=== PATIENT | male | born 1945 | race Caucasian/White ===

== ENCOUNTER → 2016-02-14 | Outpatient (CLI) | payer OTHER, BC ==
[~2016-02-14] VITALS: Ht 180.3 cm; Wt 81.6 kg
[~2016-02-14] MED LIST: AMBEREN; AMBIEN 5 MG TABL5 M1 PO; CARISOPRODOL 3350 MG PO; CELEBREX 200 M200 MG PO; CYMBALTA30 MG PO; CYMBALTA60 MG PO; HYDROCODON-ACE1 EAC8 PO; HYTRIN 5 M5 MG/1 CAP PO; MELOXICAM7.5 MG PO; NORCO 7.5-3251 EACH PO; OMEPRAZOLE20 M2 PO; OXYCODONE-APAP1 EAC6 PO; PERCOCET 7.5-31 EACH PO; RAPAFLO4 MG PO; RISPERIDONE1 MG PO; SKELAXIN 800 M800 M1 PO; TRAZODONE HCL100 MG PO; XANAX 0.5 MG0.5 MG PO; ZANAFLEX4 MG PO
--- NOTE | ~2016-02-14 | HPC ---
[facility] [place] [address] PAIN MANAGEMENT CONSULTATION Name: CANDIDA VICKERS Room #: REG [facility] Angel Luis.#: [id number] Admission: 02/14/16 Attend Phys: Wayne Rodriguez DO Discharge: Date of : 47 Report #: [id number] THIS REPORT FOR: //name// CC: Ambrose Rodriguez The patient is a very pleasant 70-year-old gentleman, well known to pain clinic, typically treated for lumbar radiculopathy, myofascial pain requiring complex medication management, history of DJD of the right shoulder. Last visit 12/29/2015, we continued the patient on Percocet 7.5/325 four a day and was given a lumbar epidural injection for radicular symptoms. He returns to pain clinic today noting that while the epidural injection afforded good relief of radicular pain, he has a new complaint, which is primarily pain in the low back, left greater than right. PHYSICAL EXAMINATION: Shows symptoms to be a little bit different than prior. He has tenderness over the SI joints with grossly positive Néstor test bilaterally, left greater than right. Lower extremity strength; however, is symmetric. Straight leg raise is negative. Vital signs otherwise stable as noted on the EMR. Former smoker. ASSESSMENT: Acute exacerbation of sacroiliac and lumbosacral mediated pain in patient with chronic pain concerns include lumbar radiculopathy, myofascial pain, requiring complex medication management. RECOMMENDATION: 1. We will get a urine drug screen today, it has been greater than a year since his last urine drug screen, though he does not require medication renewal today. 2. Bilateral SI joint injection under fluoroscopy today. 3. I did refer the patient for physical therapy for core strengthening exercises. Follow up in 1 month to evaluate efficacy of intervention today and for medication renewal. PROCEDURE NOTE: Bilateral SI joint injection under fluoroscopy. INDICATION: Symptomatic sacroiliac joint dysfunction, lumbosacral spondylosis without myelopathy. PROCEDURE NOTE: After written and informed consent was obtained including risk of infection, nerve trauma, increased pain and weakness, the patient wishes to proceed. The patient was taken to the fluoroscopy suite, placed in the prone position. The sacroiliac joint was visualized using the C-arm, turned in an oblique fashion to align the joint. The skin overlying the area was cleansed with ChloraPrep. Skin wheal with Xylocaine was raised. A 22 gauge spinal needle was inserted into the inferior aspect of the joint. A low volume extension tubing was then attached to the needle after [place] [address] PAIN MANAGEMENT CONSULTATION Name: CANDIDA VICKERS Bro Room #: REG [facility] Carlos#: [id number] Admission: 02/14/16 Attend Phys: Wayne Rodriguez DO Discharge: Date of : 47 Report #: [id number] Negative aspiration was accomplished. 1 mL of Omnipaque was injected which showed spread within the SI joint. 40 mg triamcinolone plus 2 mL of 0.5% preservative-free bupivacaine was injected into the joint. Needle was removed. Attention was then turned to the contralateral joint which was treated in an identical fashion. After both needles were removed the prep was washed off. Two Band-Aids were applied over the puncture sites. The patient was allowed to ambulate to the recovery room, monitored for an appropriate period of time, discharged in good and stable condition. <ELECTRONICALLY SIGNED> By: Wayne Rodriguez DO 02/19/16 1607 1229 1424 Wayne Rodriguez DO /nt
[2016-02-14 10:13] VITALS: BP 139/86
[2016-02-20 20:11] LABS: EER PAIN MGT INTERP FINAL (())
== END ==
LOC: PAIN 07:14
PROVIDERS: Anesthesiology Pain Medicine
DX: M53.3 Sacrococcygeal disorders, not elsewhere classified (principal); M19.011 Primary osteoarthritis, right shoulder; M47.27 Other spondylosis with radiculopathy, lumbosacral region; Z87.891 Personal history of nicotine dependence

== ENCOUNTER → 2016-08-06 | Outpatient (CLI) | payer OTHER, BC ==
[~2016-08-06] VITALS: Ht 180.3 cm; Wt 86.6 kg
[~2016-08-06] MED LIST changes: +ABILIFY 2 MG2 M1 PO; +LEXAPRO 10 MG T10 M2 PO
[2016-08-06 14:03] VITALS: BP 122/82
== END ==
LOC: PAIN 07-31 06:58
DX: M47.26 Other spondylosis with radiculopathy, lumbar region (principal); M19.011 Primary osteoarthritis, right shoulder; Z79.891 Long term (current) use of opiate analgesic; Z87.891 Personal history of nicotine dependence

== ENCOUNTER → 2016-11-05 | Outpatient (CLI) | payer OTHER, BC ==
[~2016-11-05] VITALS: Ht 180.3 cm; Wt 92.4 kg
--- NOTE | ~2016-11-05 | HPC ---
[facility] [place] [address] PAIN MANAGEMENT CONSULTATION Name: CANDIDA VICKERS [facility] [id number] Admission: 11/05/16 Attend Phys: Wayne Rodriguez DO Discharge: Date of : 47 Report #: [id number] THIS REPORT FOR: //name// CC: Ambrose Rodriguez The patient is a 71-year-old gentleman, typically treated for lumbosacral spondylosis, SI mediated pain, myofascial pain requiring high risk complex medication management. Last seen in the pain clinic 08/06/2016, continued on Percocet 7.5/325 four a day, tizanidine 4 mg t.i.d. for spasm, and Meloxicam 7.5 b.i.d., encouraged to use on a nondaily basis for cardiac concerned, was referred to physical therapy and was given bilateral SI joint injections. He prior had bilateral SI joint injections in February as well. He returns to pain clinic today noting the injection lasts visit afforded good incremental relief of pain. Specifically, rates 50% relief for 10 weeks, but pain has begun to recur. He rates the pain 7 on VAS, pain is across the low back, buttocks, does not radiate into legs. PHYSICAL EXAMINATION: Shows a 71-year-old gentleman, BMI is 28.4 kg/m2. Vital signs are stable as noted in the EMR. Rises from chair using armrest. Diffuse tenderness across the low back. Positive Néstor test bilaterally. Lower extremity strength is preserved. We reviewed the fact that opiate medications are being used to provide analgesia adequate to support activities of daily living, not attempting to achieve a specific pain score on the 0-10 Visual Analog Scale. The current opiate medications are providing sufficient analgesia to allow the patient to participate in activities of daily living. The patient is not exhibiting any aberrant behavior suggestive of drug diversion. The patient is not having any adverse reactions to medications. The patient is not suffering from daytime somnolence or mental acuity changes. The patient is managing opiate-induced constipation with appropriate zcfq-cpf-gmnjulf agents and dietary considerations. The patient was counseled on concern for caution with operating a motor vehicle while using opiate medications. A physical exam was performed and the patient's functional status was evaluated. All patients with back pain were advised against the bed rest greater than 4 days and were advised to return to normal activities. Pain score assessment was noted and the treatment plan was reviewed with the patient. All current medications, both prescribed and OTC were reviewed and reconciled on the electronic medical record. Tobacco screening was accomplished and smoking cessation was advised when indicated. BMI was noted and diet/exercise modification was recommended for all patients following outside normal parameters. I reviewed with the patient today their responsibilities to [address] [address] PAIN MANAGEMENT CONSULTATION Name: CANDIDA VICKERS Room #: REG CLNathalia Gonzalez#: [id number] Admission: 11/05/16 Attend Phys: Wayne Rodriguez DO Discharge: Date of : 47 Report #: [id number] prescription medications, reviewed their responsibility to utilize medications only as prescribed by the physician. They are to seek and receive pain medications only from 1 physician group ( [facility]). They are to use 1 pharmacy and keep the clinic informed if they change pharmacies. Their responsibilities include making followup visits in a timely fashion and to avoid abrupt discontinuation of medication usage. Their responsibilities further include bringing their medications (bottles from the pharmacy with residual pills) to the visit for possible confirmation of pill counts and the patient understands it is their responsibility to submit to random drug screens to ensure both that the medications prescribed are present, and that no other controlled substances are present. All prescriptions provided today were generated electronically. ASSESSMENT: 1. Symptomatic lumbosacral spondylosis, sacroiliac mediated pain, myofascial pain, requiring high risk complex medication management. 2. Acute bilateral SI mediated pain. RECOMMENDATIONS: 1. Continue current medications including Percocet 7.5/325 four a day, tizanidine 4 mg t.i.d., Meloxicam 7.5 b.i.d. on a nondaily basis. Encouraged to continue physical therapy. 2. SI joint injection under fluoroscopy. PROCEDURE NOTE: After written and informed consent was obtained including risk of infection, nerve trauma, increased pain and weakness, the patient wishes to proceed. The patient was taken to the fluoroscopy suite, placed in the prone position. The sacroiliac joint was visualized using the C-arm, turned in an oblique fashion to align the joint. The skin overlying the area was cleansed with ChloraPrep. Skin wheal with Xylocaine was raised. A 22 gauge spinal needle was inserted into the inferior aspect of the joint. A low volume extension tubing was then attached to the needle after the stylet was removed. Negative aspiration was accomplished. 1 mL of Omnipaque was injected which showed spread within the SI joint. 40 mg triamcinolone plus 2 mL of 0.5% preservative-free bupivacaine was injected into the joint. Needle was removed. Attention was then turned to the contralateral joint which was treated in an identical fashion. After both needles were removed the prep was washed off. Two Band-Aids were applied over the puncture sites. The patient was allowed to ambulate to the recovery room, monitored for an appropriate period of time, discharged in good and stable condition. <ELECTRONICALLY SIGNED> By: Wayne Rodriguez DO 11/09/16 0840 1703 1640 Wayne Rodriguez DO /nt
[2016-11-05 14:34] VITALS: BP 127/68
== END | disposition home or self-care (01) ==
LOC: PAIN 06:40
DX: M53.3 Sacrococcygeal disorders, not elsewhere classified (principal); G89.29 Other chronic pain; M47.897 Other spondylosis, lumbosacral region; M79.1 Myalgia; Z79.891 Long term (current) use of opiate analgesic; Z87.891 Personal history of nicotine dependence; Z79.899 Other long term (current) drug therapy

== ENCOUNTER → 2017-01-29 | Outpatient (CLI) | payer OTHER, BC ==
[~2017-01-29] VITALS: Ht 180.3 cm; Wt 92.7 kg
--- NOTE | ~2017-01-29 | HPC ---
[facility] [place] [address] PAIN MANAGEMENT CONSULTATION Name: CANDIDA VICKERS [facility] [id number] Admission: 01/29/17 Attend Phys: Wayne Rodriguez DO Discharge: Date of : 47 Report #: [id number] THIS REPORT FOR: //name// CC: Ambrose Rodriguez HISTORY OF PRESENT ILLNESS: The patient is a 71-year-old gentleman well known to the pain clinic, being treated for SI joint dysfunction primarily, component of lumbosacral spondylosis, myofascial pain requiring high-risk complex medication management. Last seen in the pain clinic 11/05/2016. The patient continued on Percocet 7.5/325 four a day, tizanidine 4 mg t.i.d. for spasm and meloxicam 7.5 b.i.d. The patient has done well with occasional bilateral SI joint injections. Refer to physical therapy, is doing those core strengthening exercises ongoing. Unfortunately, last bilateral SI joint injection on 11/05/2016 afforded only about 60% relief, which is less than his typical. The patient returns to pain clinic today noting medications are providing sufficient analgesia to allow the patient to participate in activities of daily living. He really does not require a renewal of medication today. He is requesting repeat bilateral SI joint injection with increasing pain. PHYSICAL EXAMINATION: GENERAL: Remains unchanged pleasant 71-year-old gentleman. VITAL SIGNS: Stable. MUSCULOSKELETAL: Lumbar flexion is limited about 70 degrees. Lower extremity strength is symmetric. Straight leg raise negative. Tenderness over the SI joints bilaterally with a positive Néstor test, positive Gaenslen's test and positive distraction. ASSESSMENT: Symptomatic bilateral sacroiliac joint dysfunction by clinical exam. RECOMMENDATION: Bilateral SI joint injection under fluoroscopy. PROCEDURE NOTE: After written and informed consent was obtained including risk of infection, nerve trauma, increased pain and weakness, the patient wishes to proceed. The patient was taken to the fluoroscopy suite, placed in the prone position. The sacroiliac joint was visualized using the C-arm, turned in an oblique fashion to align the joint. The skin overlying the area was cleansed with ChloraPrep. Skin wheal with Xylocaine was raised. A 22 gauge spinal needle was inserted into the inferior aspect of the joint. A low volume extension tubing was then attached to the needle after the stylet was removed. Negative aspiration was accomplished. A 1 mL of Omnipaque was injected which showed spread within the SI joint. 40 mg triamcinolone plus 2 mL of 0.5% preservative-free bupivacaine was injected into the joint. Needle was removed. [address] [address] PAIN MANAGEMENT CONSULTATION Name: CANDIDA VICKERS Room #: REG [facility] Carlos#: [id number] Admission: 01/29/17 Attend Phys: Wayne Rodriguez DO Discharge: Date of : 47 Report #: [id number] Attention was then turned to the contralateral joint which was treated in an identical fashion. After both needles were removed the prep was washed off. Two Band-Aids were applied over the puncture sites. The patient was allowed to ambulate to the recovery room, monitored for an appropriate period of time, discharged in good and stable condition. By: 1241 [id number] Wayne Rodriguez DO /nt
[2017-01-29 09:54] VITALS: BP 138/90
== END | disposition home or self-care (01) ==
LOC: PAIN 07:37
DX: M53.3 Sacrococcygeal disorders, not elsewhere classified (principal); G89.29 Other chronic pain; M47.897 Other spondylosis, lumbosacral region; M79.1 Myalgia; F41.8 Other specified anxiety disorders; Z79.891 Long term (current) use of opiate analgesic; Z98.890 Other specified postprocedural states; Z87.891 Personal history of nicotine dependence; Z79.899 Other long term (current) drug therapy

== ENCOUNTER → 2017-04-12 | Outpatient (CLI) | payer OTHER, BC ==
[~2017-04-12] VITALS: Ht 180.3 cm; Wt 97.2 kg
--- NOTE | ~2017-04-12 | HPC ---
[facility] [place] [address] PAIN MANAGEMENT CONSULTATION Name: CANDIDA VICKERS Room #: REG [facility] Angel Luis.#: [id number] Admission: 04/12/17 Attend Phys: Wayne Rodriguez DO Discharge: Date of : 47 Report #: [id number] THIS REPORT FOR: //name// CC: Ambrose Rodriguez The patient is a very pleasant 71-year-old gentleman, well known to the pain clinic, typically treated for SI mediated pain, lumbosacral spondylosis. He has done well with occasional SI joint injections. He takes Percocet 7.5/325 three-four a day, Meloxicam 7.5 daily and tizanidine for spasm. He has had multiple SI joint injections, 4 in 2015, February, July, October and January. He notes he gets 2-3 months' relief with injection, pain recurs, pain is in the low back, exacerbated with standing, walking, and bending. It does not radiate below the knees. PHYSICAL EXAMINATION: Positive Néstor test. Positive Gaenslen's. Positive pelvic distraction. Otherwise, vital signs are stable. Subjectively pain score 6-7 on a VAS. BMI is 29.9 kg/m2. He does not use tobacco products. He has an opiate consent to treat contract signed on 09/05/2015. ASSESSMENT: Chronic pain syndrome requiring complex medication management, sacroiliac mediated pain, axial back pain, myofascial pain by history. We reviewed the fact that opiate medications are being used to provide analgesia adequate to support activities of daily living, not attempting to achieve a specific pain score on the 0-10 Visual Analog Scale. The current opiate medications are providing sufficient analgesia to allow the patient to participate in activities of daily living. The patient is not exhibiting any aberrant behavior suggestive of drug diversion. The patient is not having any adverse reactions to medications. The patient is not suffering from daytime somnolence or mental acuity changes. The patient is managing opiate-induced constipation with appropriate pfaf-qnr-upylwjd agents and dietary considerations. The patient was counseled on concern for caution with operating a motor vehicle while using opiate medications. A physical exam was performed and the patient's functional status was evaluated. All patients with back pain were advised against the bed rest greater than 4 days and were advised to return to normal activities. Pain score assessment was noted and the treatment plan was reviewed with the patient. All current medications, both prescribed and OTC were reviewed and reconciled on the electronic medical record. Tobacco screening was accomplished and smoking cessation was advised when indicated. BMI was noted and diet/exercise modification was recommended for all patients following outside normal parameters. I reviewed with the patient today their responsibilities to safeguard prescription medications, reviewed their responsibility to utilize medications [address] [address] PAIN MANAGEMENT CONSULTATION Name: CANDIDA VICKERS Room #: REG [facility] Carlos#: [id number] Admission: 04/12/17 Attend Phys: Wayne Rodriguez DO Discharge: Date of : 47 Report #: [id number] only as prescribed by the physician. They are to seek and receive pain medications only from 1 physician group ( [facility]). They are to use 1 pharmacy and keep the clinic informed if they change pharmacies. Their responsibilities include making followup visits in a timely fashion and to avoid abrupt discontinuation of medication usage. Their responsibilities further include bringing their medications (bottles from the pharmacy with residual pills) to the visit for possible confirmation of pill counts and the patient understands it is their responsibility to submit to random drug screens to ensure both that the medications prescribed are present, and that no other controlled substances are present. All prescriptions provided today were generated electronically. RECOMMENDATIONS: 1. Renew Percocet 7.5/325, taken the liberty of writing for 100 tablets, release today and 4 weeks; continue tizanidine 4 mg t.i.d., and Meloxicam 7.5 b.i.d. 2. Bilateral SI joint injection under fluoroscopy today. 3. The patient was given contact information for Dr. Osmany Miller and Dr. Herberth Chairez for consideration for percutaneous fusion of the SI joint. PROCEDURE: Bilateral SI joint injection under fluoroscopy. PROCEDURE NOTE: After written and informed consent was obtained including risk of infection, nerve trauma, increased pain and weakness, the patient wishes to proceed. The patient was taken to the fluoroscopy suite, placed in the prone position. The sacroiliac joint was visualized using the C-arm, turned in an oblique fashion to align the joint. The skin overlying the area was cleansed with ChloraPrep. Skin wheal with Xylocaine was raised. A 22 gauge spinal needle was inserted into the inferior aspect of the joint. A low volume extension tubing was then attached to the needle after the stylet was removed. Negative aspiration was accomplished. A 1 mL of Omnipaque was injected which showed spread within the SI joint. 40 mg triamcinolone plus 2 mL of 0.5% preservative-free bupivacaine was injected into the joint. Needle was removed. Attention was then turned to the contralateral joint which was treated in an identical fashion. After both needles were removed the prep was washed off. Two Band-Aids were applied over the puncture sites. The patient was allowed to ambulate to the recovery room, monitored for an appropriate period of time, discharged in good and stable condition. <ELECTRONICALLY SIGNED> By: Wayne Rodriguez DO 04/14/17 0820 1630 1947 Wayne Rodriguez DO /nt
[2017-04-12 09:55] VITALS: BP 142/86
== END | disposition home or self-care (01) ==
LOC: PAIN 07:21
DX: M53.3 Sacrococcygeal disorders, not elsewhere classified (principal); G89.4 Chronic pain syndrome; M79.1 Myalgia; M54.9 Dorsalgia, unspecified; Z87.891 Personal history of nicotine dependence; Z79.899 Other long term (current) drug therapy; Z79.891 Long term (current) use of opiate analgesic

== ENCOUNTER → 2017-07-16 | Outpatient (CLI) | payer OTHER, BC ==
[~2017-07-16] VITALS: Ht 180.3 cm; Wt 97.1 kg
--- NOTE | ~2017-07-16 | HPC ---
[facility] [place] [address] PAIN MANAGEMENT CONSULTATION Name: CANDIDA VICKERS [facility] [id number] Admission: 07/16/17 Attend Phys: Wayne Rodriguez DO Discharge: Date of : 47 Report #: [id number] THIS REPORT FOR: //name// CC: Ambrose Rodriguez DATE OF SERVICE: 07/16/2017 PAIN CLINIC NOTE The patient is a very pleasant 72-year-old gentleman well known to the pain clinic. He has been treated for symptomatic SI mediated pain, component of lumbosacral spondylosis without myelopathy. He has done very well with occasional SI joint injections. He prior been treated with epidural injections back in 2015. Attention was directed at the SI joints in February 2016. He had 4 SI joint injections in 2016 and repeated injection in April and referred the patient to [facility] (Blake Miller MD) for consideration for percutaneous SI fusion. Per the patient, he did see a surgeon at [facility] who thought that the patient would not benefit from percutaneous SI fusion. He returns to pain clinic today noting he had excellent relief following the prior SI joint injections, but pain has gradually begun to reoccur, he rates it a 6-7 on a VAS. Pain is exacerbated with standing, walking and bending forward. PHYSICAL EXAMINATION: Shows a 72-year-old gentleman with BMI is 29.9 kilograms per meter squared. Vital signs stable as noted in the EMR. Lower extremity strength is preserved. Straight leg raise is negative. Tender over the SI joints. Positive Néstor test, positive Gaenslen's test, positive pelvic distraction. ASSESSMENT: Symptomatic sacroiliac joint mediated pain, lumbosacral spondylosis without myelopathy. RECOMMENDATION: 1. Continue Percocet rare use 7.5/ he does not require a prescription (prior prescription for 120 tablets given in April). Continue meloxicam 7.5 b.i.d. and tizanidine for spasm. 2. Bilateral SI joint injection under fluoroscopy today. 3. Follow up simply as needed with one of the Pain physicians. PROCEDURE: Bilateral SI joint injection under fluoroscopy. PROCEDURE NOTE: After written and informed consent was obtained including risk of infection, nerve trauma, increased pain and weakness, the patient wishes to [address] [address] PAIN MANAGEMENT CONSULTATION Name: CANDIDA VICKERS [facility] #: [facility] [id number] Admission: 07/16/17 Attend Phys: Wayne Rodriguez DO Discharge: Date of : 47 Report #: [id number] proceed. The patient was taken to the fluoroscopy suite, placed in the prone position. The sacroiliac joint was visualized using the C-arm, turned in an oblique fashion to align the joint. The skin overlying the area was cleansed with ChloraPrep. Skin wheal with Xylocaine was raised. A 22 gauge spinal needle was inserted into the inferior aspect of the joint. A low volume extension tubing was then attached to the needle after the stylet was removed. Negative aspiration was accomplished. A 1 mL of Omnipaque was injected which showed spread within the SI joint. 40 mg triamcinolone plus 2 mL of 0.5% preservative-free bupivacaine was injected into the joint. Needle was removed. Attention was then turned to the contralateral joint which was treated in an identical fashion. After both needles were removed the prep was washed off. Two Band-Aids were applied over the puncture sites. The patient was allowed to ambulate to the recovery room, monitored for an appropriate period of time, discharged in good and stable condition. <ELECTRONICALLY SIGNED> By: Wayne Rodriguez DO 07/19/17 0709 1209 02 Wayne Rodriguez DO /nt
[2017-07-16 10:49] VITALS: BP 138/87
== END | disposition home or self-care (01) ==
LOC: PAIN 07:10
DX: M53.3 Sacrococcygeal disorders, not elsewhere classified (principal); M47.27 Other spondylosis with radiculopathy, lumbosacral region; G89.29 Other chronic pain; Z98.890 Other specified postprocedural states; Z87.891 Personal history of nicotine dependence; Z79.899 Other long term (current) drug therapy

== ENCOUNTER → 2018-04-19 | Outpatient (CLI) | payer OTHER, BC ==
[~2018-04-19] VITALS: Ht 182.9 cm; Wt 98.7 kg
[~2018-04-19] MED LIST changes: +PAXIL10 MG PO; +ZYPREXA2.5 MG PO
[2018-04-19 09:50] VITALS: BP 150/80
--- NOTE | 2018-04-19 09:51 | NUR ---
Pain Clinic Assessment: 1. History of Osteoarthritis: Not Applicable History of Rheumatoid Arthritis: Not Applicable 2. Height: 6 ft. 0 in. 182.9 cm. Weight: 217.6 lb. oz. 98.703 kg. Patient's BMI: 29.5 3. Vital Signs: BP: 150/80 Pulse: 64 Resp: 18 Temp: 02 Sat: 100 ECG Mon: 4. Pain Intensity: 7 5. Fall Risk: Dizziness: Needs help standing or walking: Fallen in the last 3 months: Fall risk comments: 6. Patient on Blood Thinner: None 7. History of Hypertension: N 8. Opioid Therapy greater than 6 weeks: Y Opiate Contract Signed: 09/05/15 9. Risk Assessment Tool Provided: 4/MOD 10. Functional Assessment Tool: 11. Recreational Drug Use: Never Drug Type: Tobacco Use: Current Every Day Smoker Tobacco Type: Cigarettes Amount or Packs/day: 1/2 How Many Years: Alcohol Use: No Frequency: Quant:
--- NOTE | 2018-04-20 11:50 | HPC ---
[facility] [place] [address] PAIN MANAGEMENT CONSULTATION Name: CANDIDA VICKERS [facility]: [id number] Admission: 04/19/18 ������������������ Attend Phys: Morgan Rodriguez DO Discharge: ������������������ Date of : 49 Report #: [id number] THIS REPORT FOR: //name// CC: Morgan Viera MD DATE OF SERVICE: 04/19/2018 CHIEF COMPLAINT: Bilateral SI joint pain. HISTORY OF PRESENT ILLNESS: As you know, the patient is a very pleasant 73-year-old male who returns today in followup visit indicating excellent benefit with SI joint injections. The last injection series was performed 07/16/2017 by my partner, Dr. Wayne Rodriguez. He has done very well with bilateral SI joint injections, returning today in followup visit stating a pain level of around 7/10. He has had a slow and progressive return of symptoms. No inciting injury or trauma. He returns today requesting bilateral SI joint injections under fluoroscopic guidance and also requesting refill of medications. ALLERGIES: No known drug allergies. CURRENT MEDICATIONS: Omeprazole 20 mg once a day, multivitamin 1 tab per day, alprazolam 0.5 mg b.i.d., meloxicam 7.5 mg once a day, Percocet 7.5/325 one tab p.o. q. 6 hours p.r.n. for pain, tizanidine 4 mg 3 times a day p.r.n. muscle spasming, Paxil 10 mg per day, Zyprexa 2.5 mg once a day. SOCIAL HISTORY: The patient smokes half pack of tobacco per day, has done so for years. Denies IV or illicit drug use. Denies any chronic alcohol use. He is unaccompanied at today's visit. PQRS: The patient has no known osteoarthritis. No rheumatoid arthritis. He is placing pain intensity at 7/10. He is not a fall risk nor has he had a fall in the last 3 months. He is not on blood thinners. He is not treated for hypertension. He is on long-term opioid medication a with moderate risk of opioid addiction. He is placing pain impact score at 35/70, moderate interference of daily activities secondary to pain. PHYSICAL EXAMINATION: VITAL SIGNS: Blood pressure 150/80, pulse 64, respiratory rate 18 and unlabored. The patient is 100% on room air, height 6 feet tall, weight 217.6 pounds, BMI calculated 29.5. GENERAL: Well-developed, well-nourished, well-hydrated 73-year-old male appearing stated age, placing current pain score 7/10. HEENT: Normocephalic, atraumatic. Pupils equal, round, reactive to light. [facility] [address] [place] [address] PAIN MANAGEMENT CONSULTATION Name: CANDIDA VICKERS [facility] #[facility]Tre[facility] [id number] Admission: 04/19/18 ������������������ Attend Phys: Morgan Rodriguez DO Discharge: ������������������ Date of : 49 Report #: [id number] Extraocular muscles are intact. EXTREMITIES: Show no clubbing, no cyanosis, no edema. MUSCULOSKELETAL: Lower extremity strength is symmetrical 5/5. Muscle bulk and tone is symmetrical in comparing left lower extremity to right. Seated straight leg raising negative. Supine straight leg raising negative. Palpatory tenderness noted over the SI joints bilaterally. Deep palpation of the area causes intensification of pain. Also, pressure over the sacrum causes increase in pain in the typical SI joint fashion. Ankle clonus negative. Babinski is negative. ASSESSMENT: 1. Bilateral sacroiliac joint dysfunction. 2. Lumbosacral spondylosis without radiculopathy. 3. Chronic intractable pain. PLAN: 1. The patient returns today in followup visit indicating good efficacy with the SI joint injections provided at last visit. The patient reports almost 6 months' worth of pain improvement. He returns today in followup visit with pain score of around 7/10 involving the bilateral SI joints. He has requested a SI joint injection to be provided to both on the left and right side to address his bilateral SI joint dysfunction. He has been advised of risks and benefits of the procedure, states understood and wished to proceed. We reviewed the fact that opiate medications are being used to provide analgesia adequate to support activities of daily living, not attempting to achieve a specific pain score on the 0-10 Visual Analog Scale. The current opiate medications are providing sufficient analgesia to allow the patient to participate in activities of daily living. The patient is not exhibiting any aberrant behavior suggestive of drug diversion. The patient is not having any adverse reactions to medications. The patient is not suffering from daytime somnolence or mental acuity changes. The patient is managing opiate-induced constipation with appropriate [id number] agents and dietary considerations. The patient was counseled on concern for caution with operating a motor vehicle while using opiate medications. A physical exam was performed and the patient's functional status was evaluated. All patients with back pain were advised against the bed rest greater than 4 days and were advised to return to normal activities. Pain score assessment was noted and the treatment plan was reviewed with the patient. All current medications, both prescribed and OTC were reviewed and reconciled on the electronic medical record. Tobacco screening was accomplished and smoking cessation was advised when indicated. BMI was noted and diet/exercise modification was recommended for all patients following outside normal parameters. [facility] [place] [address] PAIN MANAGEMENT CONSULTATION Name: CANDIDA VICKERS Room #: REG CLNathalia Angel Luis.#: [id number] Admission: 04/19/18 ������������������ Attend Phys: Morgan Rodriguez DO Discharge: ������������������ Date of : 49 Report #: [id number] I reviewed with the patient today their responsibilities to safeguard prescription medications, reviewed their responsibility to utilize medications only as prescribed by the physician. They are to seek and receive pain medications only from 1 physician group ( [facility]). They are to use 1 pharmacy and keep the clinic informed if they change pharmacies. Their responsibilities include making followup visits in a timely fashion and to avoid abrupt discontinuation of medication usage. Their responsibilities further include bringing their medications (bottles from the pharmacy with residual pills) to the visit for possible confirmation of pill counts and the patient understands it is their responsibility to submit to random drug screens to ensure both that the medications prescribed are present, and that no other controlled substances are present. All prescriptions provided today were generated electronically. 2. The patient was provided prescription of Percocet 7.5/325 one tab p.o. q. 6 hours p.r.n. for pain, #120, releasing today and 4 weeks from today, 2 months' worth of medication. 3. The patient was provided a prescription of tizanidine 4 mg dose 1 tab p.o. q. 8 hours p.r.n. muscle spasm, given #90 tablets, one refill. 4. The patient was provided prescription of meloxicam 7.5 mg 1 tab p.o. q. day to 2 tabs p.o. q. day. I have given the patient #60, 2 refills. 5. We will see the patient back in followup visit on an as needed basis for bilateral SI joint injections. Otherwise, we will see him back for medication management. PROCEDURE NOTE DESCRIPTION OF PROCEDURE: Bilateral SI joint injections under fluoroscopic guidance. This is the first procedure of the third series that the patient is undergoing. After obtaining written consent, the patient was taken back to the fluoroscopy suite and placed in a prone position with a pillow under the pelvis to decrease the lumbar lordosis. The skin of the gluteal-sacral area overlying the bilateral sacroiliac joint was prepped and draped in an aseptic fashion. A medial to lateral oblique projection allowed separation of the anterior and posterior branches of the joint space. The skin and subcutaneous tissue overlying the target site of injection was anesthetized using 3 mL of 1% lidocaine. A 22-guage 3.5 inch needle with a bent tip was directed into the inferior aspect of the sacroiliac joint using a posterior approach. A giving way at the needle hub was noted once the dorsal sacroiliac and interosseous [address] [address] PAIN MANAGEMENT CONSULTATION Name: CANDIDA VICKERS Room #: REG CLNathalia Gonzalez#: [id number] Admission: 04/19/18 ������������������ Attend Phys: Morgan Rodriguez DO Discharge: ������������������ Date of : 49 Report #: [id number] ligaments were engaged. After negative aspiration for heme, a total of 1 mL of Omnipaque was injected, outlining the coin-shaped inferior recess of the joint. Provocation responses consisting of intense buttock pain were negative. After negative aspiration for heme, 3 mL of a solution containing 1 mL, 40 mg per mL, 40 mg total triamcinolone and 2 mL bupivacaine 0.5% injected at each site for a 80 mg triamcinolone being provided. The needle was then retracted approximately skilled nursing and the needle track was flushed with 1 mL of lidocaine 1%. Needle was then removed. A sterile bandage was placed over the injection site. There were no new sensory deficits present in the lower extremities. The heart rate, pulse oximetry and blood pressure were continuously monitored after the procedure. There were no apparent complications. The patient tolerated the procedure well and was carefully escorted to the recovery room in stable condition. The VAS was 7/10 before the procedure and 4/10 ten minutes after the procedure. After meeting discharge criteria, the patient was discharged home. ��������������������������������������������� <ELECTRONICALLY SIGNED> ���������������������������������������� By: Morgan Rodriguez DO ��������������������������������������������� 04/20/18 1150 [id number] Morgan Rodriguez DO /nt
== END | disposition home or self-care (01) ==
LOC: PAIN 07:00
DX: M53.3 Sacrococcygeal disorders, not elsewhere classified (principal); M47.27 Other spondylosis with radiculopathy, lumbosacral region; G89.29 Other chronic pain; F17.210 Nicotine dependence, cigarettes, uncomplicated; I10 Essential (primary) hypertension; Z79.899 Other long term (current) drug therapy; Z79.891 Long term (current) use of opiate analgesic

== ENCOUNTER → 2019-04-11 | Outpatient (CLI) | payer OTHER, BC ==
[~2019-04-11] VITALS: Ht 182.9 cm; Wt 99.3 kg
[~2019-04-11] MED LIST changes: +LIPITOR20 MG PO; +PROZAC20 M1 PO
[2019-04-11 10:08] VITALS: BP 130/83
--- NOTE | 2019-04-11 10:18 | NUR ---
Pain Clinic Assessment: 1. History of Osteoarthritis: Not Applicable History of Rheumatoid Arthritis: Not Applicable 2. Height: 6 ft. 0 in. 182.9 cm. Weight: 219.0 lb. oz. 99.338 kg. Patient's BMI: 29.7 3. Vital Signs: BP: 130/83 Pulse: 91 Resp: 18 Temp: 02 Sat: 97 ECG Mon: 4. Pain Intensity: 7 5. Fall Risk: Dizziness: N Needs help standing or walking: N Fallen in the last 3 months: N Fall risk comments: 6. Patient on Blood Thinner: None 7. History of Hypertension: N 8. Opioid Therapy greater than 6 weeks: Y Opiate Contract Signed: 09/05/15 9. Risk Assessment Tool Provided: 6-mod 10. Functional Assessment Tool: 11. Recreational Drug Use: Never Drug Type: Tobacco Use: Current Every Day Smoker Tobacco Type: Cigarettes Amount or Packs/day: 2-3 per day How Many Years: 40 Alcohol Use: No Frequency: Quant:
--- NOTE | 2019-04-12 11:52 | HPC ---
[facility] [place] [address] PAIN MANAGEMENT CONSULTATION Name: CANDIDA VICKERS Room #: REG CHRISTINA Hein.#: [id number] Admission: 04/11/19 Attend Phys: Morgan Rodriguez DO Discharge: Date of : 47 Report #: [id number] THIS REPORT FOR: cc: Ambrose Viera MD, Richard C. MD Johnson, James E. DO ~ DATE OF SERVICE: 04/11/2019 CHIEF COMPLAINT: Bilateral SI joint pain. HISTORY OF PRESENT ILLNESS: As you know, the patient is a very pleasant 73-year-old male who has had recurrent bilateral SI joint pain. He is now placing pain score at 7/10. He states his pain is exacerbated with standing and walking, improves with medications, sitting, lying down and previous SI joint injections. Most recent SI joint injection gave greater than 50-60% improvement in overall pain lasting for nearly 8 months. Unfortunately, his symptoms have begun to return. He returns today in followup visit to undergo bilateral SI joint injections to address recurrent pain. He denies injury or trauma that may have led to symptom recurrence. ALLERGIES: No known drug allergies. CURRENT MEDICATIONS: Omeprazole, multivitamins, alprazolam, meloxicam, oxycodone, tizanidine, fluoxetine, and atorvastatin. SOCIAL HISTORY: The patient smokes half pack tobacco per day and has done so for years. Denies IV or illicit drug use. Denies any chronic alcohol use. He is unaccompanied at today's visit. IMAGING: No new imaging available. PQRS: The patient has known osteoarthritic changes of the lumbar spine, bilateral SI joints and bilateral knees as well as bilateral hips, no rheumatoid arthritis. He is placing pain intensity at 7/10. He is not a fall risk, has not had a fall in last 3 months. He is not on blood thinners, nor is he treated for hypertension. He is on a chronic opioid and has a moderate to high opioid addiction potential. Pain impact scores 38 of 70, moderate interference of daily activities secondary to pain. PHYSICAL EXAMINATION: VITAL SIGNS: Blood pressure 130/83, pulse 91, respiratory rate 18 and unlabored. The patient is 97% on room air, height 6 feet tall, weight 219 pounds, BMI calculated 29.7. GENERAL: Well-developed, well-nourished, well-hydrated, 73[place] [address] PAIN MANAGEMENT CONSULTATION Name: CANDIDA VICKERS Room #: REG CLNathalia HutchisonTrever#: [id number] Admission: 04/11/19 Attend Phys: Morgan Rodriguez DO Discharge: Date of : 49 Report #: [id number] appearing stated age, pain rated today at around 7/10. HEENT: Normocephalic, atraumatic. Pupils equal, round, reactive to light. EXTREMITIES: Show no clubbing, no cyanosis, and no edema. MUSCULOSKELETAL: Lower extremity strength remains symmetrical 5/5. Muscle bulk and tone equal and symmetrical in comparing left lower extremity to right. There does not appear to be any muscle atrophy. Seated straight leg raising negative. Supine straight leg raising negative. Néstor's test is negative. There is palpatory tenderness over the paraspinal musculature of the lower lumbar and upper buttock area consistent with SI joint dysfunction. Deep palpation of the area causes intensification of pain. Pressure over the sacrum causes intensification of pain bilaterally. Ankle clonus negative. Babinski is negative. Gait mildly antalgic due to pain mainly favoring right lower extremity. ASSESSMENT: 1. Bilateral sacroiliac joint dysfunction. 2. Lumbosacral spondylosis without radiculopathy. 3. Chronic intractable pain. PLAN: 1. The patient returns today in followup visit having noted greater than 50-60% improvement in overall pain with previous SI joint injections provided nearly 1 year ago. Unfortunately, his symptoms have begun to return. He returns today in followup visit requesting bilateral SI joint injections be performed today in hopes of improving pain. The patient has been advised the risks and benefits of the procedure, states understood and wished to proceed. 2. No medication changes made at today's visit. The patient will continue current medical therapy as prior prescribed. 3. We will see the patient back in followup visit on an as needed basis for possible next in the series of SI joint injections. We are hopeful the patient will see good and prolonged benefit with today's procedure. PROCEDURE NOTE: DESCRIPTION OF PROCEDURE: Bilateral SI joint injections under fluoroscopic guidance. After obtaining written consent, the patient was taken back to fluoroscopy suite, placed in a prone position with pillow under the pelvis to decrease lumbar lordosis. Skin overlying the gluteal sacral area was then prepped and draped in aseptic fashion using chlorhexidine. A medial to lateral oblique projection allowed separation of the anterior and posterior joint spaces to be visualized. Skin and subcutaneous tissue on the left side was anesthetized with 3 mL of 1% lidocaine. A 22-gauge 3-1/2 inch spinal needle with bent tip was directed to the inferior aspect of the left sacroiliac joint using a posterior approach. A "giving away at the needle hub [facility] [address] [address] PAIN MANAGEMENT CONSULTATION Name: CANDIDA VICKERS Room #: REG CLNathalia Hein#: [id number] Admission: 04/11/19 Attend Phys: Morgan Rodriguez DO Discharge: Date of : 49 Report #: [id number] interosseous ligaments were engaged." After negative aspiration for heme, a total of 3 mL of medication was provided, which included 1 mL 40 mg per mL, 40 mg total triamcinolone and 2 mL bupivacaine 0.5%. Needle was retracted fdc, flushed with 1 mL of 1% lidocaine and removed. Our attention was then directed to the right side. The area over the injection site was prepped and draped in aseptic fashion with chlorhexidine. Skin and subcutaneous tissue overlying target site of injection was anesthetized with 3 mL of 1% lidocaine. A 22-gauge 3-1/2 inch spinal needle with bent tip was directed to the inferior aspect of the right sacroiliac joint. A "giving away at the needle hub" was noted once the dorsal sacroiliac and interosseous ligaments were engaged. After negative aspiration for heme, 3 mL of a solution containing 1 mL 40 mg per mL, 40 mg total triamcinolone along with 2 mL bupivacaine 0.5% injected slowly. Needle retracted fdc, flushed with 1 mL of 1% lidocaine and removed. Sterile bandage placed over injection site. There were no new motor deficits bilaterally in the lower extremities following procedure. The patient tolerated the procedure well, carefully escorted to recovery room in stable condition. No apparent complications. After meeting discharge criteria, the patient discharged home. <ELECTRONICALLY SIGNED> By: Morgan Rodriguez DO 04/12/19 1152 [id number] Morgan Rodriguez DO /nt
== END | disposition home or self-care (01) ==
LOC: PAIN 04-10 12:25
DX: M53.3 Sacrococcygeal disorders, not elsewhere classified (principal); M47.896 Other spondylosis, lumbar region; G89.29 Other chronic pain; I10 Essential (primary) hypertension; M19.90 Unspecified osteoarthritis, unspecified site; F17.210 Nicotine dependence, cigarettes, uncomplicated; Z98.890 Other specified postprocedural states; Z79.899 Other long term (current) drug therapy; Z79.891 Long term (current) use of opiate analgesic

== ENCOUNTER → 2019-04-11 | Outpatient (CLI) | payer OTHER | LOC: CAT 11:07 | DX: Z13.6 Encounter for screening for cardiovascular disorders (principal); I25.10 Atherosclerotic heart disease of native coronary artery without angina pectoris; E78.00 Pure hypercholesterolemia, unspecified ==

== ENCOUNTER → 2020-05-14 | Outpatient (CLI) | payer OTHER, BC ==
[~2020-05-14] VITALS: Ht 182.9 cm; Wt 101.4 kg
[~2020-05-14] MED LIST changes: +DULOXETINE HCL20 MG PO; +FLOMAX0.4 MG PO
[2020-05-14 12:42] VITALS: BP 140/90
--- NOTE | 2020-05-14 12:56 | NUR ---
Pain Clinic Assessment: 1. History of Osteoarthritis: Not Applicable History of Rheumatoid Arthritis: Not Applicable 2. Height: 6 ft. 0 in. 182.9 cm. Weight: 223.6 lb. oz. 101.424 kg. Patient's BMI: 30.3 3. Vital Signs: BP: 140/90 Pulse: 88 Resp: 16 Temp: 02 Sat: 97 ECG Mon: 4. Pain Intensity: 7-8 5. Fall Risk: Dizziness: N Needs help standing or walking: N Fallen in the last 3 months: N Fall risk comments: 6. Patient on Blood Thinner: None 7. History of Hypertension: N 8. Opioid Therapy greater than 6 weeks: Y Opiate Contract Signed: 09/05/15 9. Risk Assessment Tool Provided: 6-mod 10. Functional Assessment Tool: 11. Recreational Drug Use: Never Drug Type: Tobacco Use: Current Every Day Smoker Tobacco Type: Cigarettes Amount or Packs/day: 1/2 How Many Years: Alcohol Use: No Frequency: Quant:
--- NOTE | 2020-05-15 11:25 | HPC ---
[facility] [place] [address] PAIN MANAGEMENT CONSULTATION Name: CANDIDA VICKERS Room #: REG CHRISTINA GladisMegan.#: [id number] Admission: 05/14/20 Attend Phys: Morgan Rodriguez DO Discharge: Date of : 49 Report #: [id number] THIS REPORT FOR: cc: Ambrose Viera MD, Richard C. MD Johnson, James E. DO ~ DATE OF SERVICE: 05/14/2020 REFERRING PHYSICIAN: Dr. Ambrose Viera CHIEF COMPLAINT: Bilateral SI joint pain. HISTORY OF PRESENT ILLNESS: As you know, the patient is a pleasant 75-year-old male returning in followup visit with recurrence of bilateral SI joint pain. He is placing his current pain score 7-8/10. The patient states that the previous SI joint injections gave 75% improvement in overall pain lasting until just recently. Over the past 2 months, he states he has had a slow and progressive return of symptoms, no inciting injury or trauma. He returns today in followup visit requesting to undergo bilateral SI joint injections to address his recurrent symptoms. He also reports he is out of his pain medication for which he receives intermittent Percocet, tizanidine and meloxicam. He is requesting that a refill be provided today if at all possible. Review of the patient's PDMP both on the [place] and [place] reports showed no concerning entries. He has been referred back to our clinic to discuss bilateral SI joint injections under fluoroscopic guidance. ALLERGIES: No known drug allergies. CURRENT MEDICATIONS: Omeprazole 20 mg per day, multivitamin 1 tab per day, alprazolam 0.5 mg b.i.d., meloxicam 7.5 mg b.i.d., Percocet 7.5/325 one tab every 8 hours p.r.n. for pain, tizanidine 4 mg twice a day, atorvastatin 20 mg per day, duloxetine 20 mg per day, tamsulosin 0.4 mg once a day. SOCIAL HISTORY: The patient continues to smoke despite discussions to discontinue the activity as it directly affects his chronic pain. He denies IV or illicit drug use. Denies any chronic alcohol use. He is unaccompanied today. IMAGING: No new imaging available. PQRS: The patient has known osteoarthritic changes of the lumbar spine, bilateral SI joints and hips. No rheumatoid arthritis. Placing current pain score 7-8/10. He is not a fall risk, has not had a fall in last 3 months. He is not on blood thinners nor is he treated for hypertension. He is on chronic opioids, has a ljcucjnt-au-etdzls opioid addiction potential based on our [address] [place] [address] PAIN MANAGEMENT CONSULTATION Name: CANDIDA VICKERS Room #: REG CHRISTINA Gonzalez#: [id number] Admission: 05/14/20 Attend Phys: Morgan Rodriguez DO Discharge: Date of : 47 Report #: [id number] assessment tool. Pain impact is 38/70, moderate interference of daily activities secondary to pain. PHYSICAL EXAMINATION: VITAL SIGNS: Blood pressure 140/90, pulse is 88, respiratory rate 16 and unlabored. The patient is 97% on room air, height 6 feet tall, weight 223.6 pounds, BMI calculated 30.3. GENERAL: Well-developed, well-nourished, well-hydrated 75-year-old male, who smell strongly of tobacco smoke, placing current pain score of 7-8/10. HEENT: Normocephalic, atraumatic. Pupils equal, round and reactive. EXTREMITIES: Show no clubbing, no cyanosis. No appreciable edema. MUSCULOSKELETAL: Muscle bulk and tone is once again symmetrical noted both in the left and lower extremity. Seated straight leg raising negative. Supine straight leg raising negative. Néstor's test is negative except for some bilateral SI joint tenderness. No intrinsic hip pathology. Deep palpation over the SI joints causes intensification of pain, thrust maneuver causes intensification of pain. Modified Gaenslen's causes intensification of pain over the SI joints. Ankle clonus is negative. Babinski is negative. ASSESSMENT: 1. Bilateral sacroiliac joint pain. 2. Bilateral sacroiliac joint dysfunction. 3. Lumbosacral spondylosis without radicular symptoms. 4. Chronic intractable pain. PLAN: 1. The patient returns today in followup visit having noted excellent benefit with SI joint injections provided at the last visit. In fact, he reports about 75% improvement in overall pain until just recently, where it just has recently reoccurred. He denies injury or trauma. He returns today in followup visit requesting bilateral SI joint injections under fluoroscopic guidance. He has been advised risks and benefits of this procedure, states he understood and wished to proceed. 2. The patient and I had a very long discussion again about smoking cessation. The fact that he continues to smoke chronically directly affects his chronic pain. We have discussed this with the patient in the past and recommended he discontinue this activity. He is going to consider his options, but at this point is unwilling to make that adjustment in his lifestyle. 3. The patient has requested a short dosing of opioid medication from our services. He will need to continue this medication to his PCP as we are not providing long-term opioid therapy for patients any longer given the opioid epidemic and the lack of long-term efficacy noted with these medications. We have reviewed the patient's PDMP both on the [place] and [place] reports. There is no concerning entries at this time. 4. We reviewed the fact that opiate medications are being used to provide analgesia adequate to support activities of daily living, not attempting to [facility] [address] [place] [address] PAIN MANAGEMENT CONSULTATION Name: CANDIDA VICKERS Room #: REG CHRISTINA Gonzalez#: [id number] Admission: 05/14/20 Attend Phys: Morgan Rodriguez DO Discharge: Date of : 47 Report #: [id number] achieve a specific pain score on the 0-10 Visual Analog Scale. The current opiate medications are providing sufficient analgesia to allow the patient to participate in activities of daily living. The patient is not exhibiting any aberrant behavior suggestive of drug diversion. The patient is not having any adverse reactions to medications. The patient is not suffering from daytime somnolence or mental acuity changes. The patient is managing opiate-induced constipation with appropriate fucd-yol-whgwkdm agents and dietary considerations. The patient was counseled on concern for caution with operating a motor vehicle while using opiate medications. A physical exam was performed and the patient's functional status was evaluated. All patients with back pain were advised against the bed rest greater than 4 days and were advised to return to normal activities. Pain score assessment was noted and the treatment plan was reviewed with the patient. All current medications, both prescribed and OTC were reviewed and reconciled on the electronic medical record. Tobacco screening was accomplished and smoking cessation was advised when indicated. BMI was noted and diet/exercise modification was recommended for all patients following outside normal parameters. I reviewed with the patient today their responsibilities to safeguard prescription medications, reviewed their responsibility to utilize medications only as prescribed by the physician. They are to seek and receive pain medications only from 1 physician group ( [facility]). They are to use 1 pharmacy and keep the clinic informed if they change pharmacies. Their responsibilities include making followup visits in a timely fashion and to avoid abrupt discontinuation of medication usage. Their responsibilities further include bringing their medications (bottles from the pharmacy with residual pills) to the visit for possible confirmation of pill counts and the patient understands it is their responsibility to submit to random drug screens to ensure both that the medications prescribed are present, and that no other controlled substances are present. All prescriptions provided today were generated electronically. 5. The patient was provided a prescription of Percocet 7.5/325 one tab every 6 hours p.r.n. for pain. I have given the patient #120. I advised the patient this should last an extended period of time. He is not to utilize the medication prophylactically. He is not to rely on more than 4 tablets per day. He was given 1 prescription, no refills. 6. The patient was provided refill prescription of tizanidine 4 mg dose 1 tab p.o. t.i.d., #90 with 1 refill, 2 months' worth of medication. 7. The patient was provided a prescription of meloxicam 7.5 mg 1 tab p.o. b.i.d. I have given the patient #60 tablets with 1 refill, 2 months' worth of medication. 8. We plan to see the patient back in followup visit on an as needed basis for intra-articular SI joint injections. From a medication management standpoint, we have advised the patient we are not maintaining patients on long-term opioids [facility] [address] [place] [address] PAIN MANAGEMENT CONSULTATION Name: CANDIDA VICKERS Room #: REG CLNathalia Gonzalez#: [id number] Admission: 05/14/20 Attend Phys: Morgan Rodriguez DO Discharge: Date of : 47 Report #: [id number] any longer and that if he wishes to remain on any type of medication, he will have to seek other treatment. PROCEDURE NOTE DESCRIPTION OF PROCEDURE: Bilateral sacroiliac joint injections under fluoroscopic guidance. After obtaining written consent, the patient was taken back to fluoroscopy suite, placed in prone position with pillow under her pelvis to decrease lumbar lordosis. Skin overlying the gluteal sacral area directly over the bilateral SI joints was prepped and draped in aseptic fashion. A medial to lateral oblique projection allowed separation of the anterior and posterior branches of each of the joint spaces to be visualized. Skin and subcutaneous tissue overlying target site of injection was anesthetized with 3 mL of 1% lidocaine at each site. A 22-gauge 3-1/2 inch spinal needle with bent tip was directed to the inferior aspect of the right sacroiliac joint using a posterior approach. A "giving away" at the needle hub was noted once the dorsal sacroiliac and interosseous ligaments were engaged. After negative aspiration for heme, a total of 0.5 mL of Omnipaque was injected, outlining the inferior recess of the joint. Pain provocations consistent of intense buttock pain were negative. After negative aspiration for heme, 3 mL of a solution containing 1 mL 40 mg per mL, 40 mg total triamcinolone and 2 mL bupivacaine 0.5% injected on the right. Needle was retracted [facility], flushed with 1 mL of 1% lidocaine and removed. Our attention was then directed to the left side. The skin and subcutaneous tissue overlying target site of injection was anesthetized with 3 mL of 1% lidocaine. A 22-gauge 3-1/2 inch spinal needle with bent tip was directed to the inferior aspect of the sacroiliac joint using a posterior approach. A "giving away" at the needle hub was noted once the dorsal sacroiliac and interosseous ligaments were engaged. After negative aspiration for heme, a total of 0.4 mL of Omnipaque injected, outlining the inferior recess of the joint. Provocation responses consistent of intense buttock pain on the left side were negative. After negative aspiration for heme, 3 mL of a solution containing 1 mL 40 mg per mL, 40 mg total triamcinolone and 2 mL of bupivacaine, 0.5% injected slowly. Needle was retracted approximately half way, flushed with 1 mL of 1% lidocaine and removed. Sterile bandage placed over each of the injection sites. The patient tolerated procedure well, carefully escorted to recovery room in [address] [address] PAIN MANAGEMENT CONSULTATION Name: CANDIDA VICKERS AMMY [facility] [id number] Admission: 05/14/20 Attend Phys: Morgan Rodriguez DO Discharge: Date of : 49 Report #: [id number] stable condition. No apparent complications. After meeting discharge criteria, the patient discharged home. <ELECTRONICALLY SIGNED> By: Morgan Rodriguez DO 05/15/20 [id number] Morgan Rodriguez, DO /nt
== END | disposition home or self-care (01) ==
LOC: PAIN 06:55
PROVIDERS: ATTEND Anesthesiology Pain Medicine
DX: M53.3 Sacrococcygeal disorders, not elsewhere classified (principal); M47.897 Other spondylosis, lumbosacral region; G89.29 Other chronic pain; F17.210 Nicotine dependence, cigarettes, uncomplicated; Z98.890 Other specified postprocedural states; Z79.899 Other long term (current) drug therapy

== ENCOUNTER → 2020-11-05 | Outpatient (CLI) | payer OTHER, BC ==
[~2020-11-05] VITALS: Ht 182.9 cm; Wt 98.2 kg
[~2020-11-05] MED LIST changes: +OLANZAPINE2.5 MG PO
[2020-11-05 10:19] VITALS: BP 132/82
--- NOTE | 2020-11-05 10:35 | NUR ---
Pain Clinic Assessment: 1. History of Osteoarthritis: Not Applicable History of Rheumatoid Arthritis: Not Applicable 2. Height: 6 ft. 0 in. 182.9 cm. Weight: 216.6 lb. oz. 98.249 kg. Patient's BMI: 29.4 3. Vital Signs: BP: 132/82 Pulse: 82 Resp: 16 Temp: 02 Sat: 98 ECG Mon: 4. Pain Intensity: 6 5. Fall Risk: Dizziness: N Needs help standing or walking: N Fallen in the last 3 months: N Fall risk comments: 6. Patient on Blood Thinner: None 7. History of Hypertension: N 8. Opioid Therapy greater than 6 weeks: Y Opiate Contract Signed: 09/05/15 9. Risk Assessment Tool Provided: 6-mod 10. Functional Assessment Tool: 11. Recreational Drug Use: Never Drug Type: Tobacco Use: Current Every Day Smoker Tobacco Type: Cigarettes Amount or Packs/day: 1-2 CIGGS How Many Years: Alcohol Use: No Frequency: Quant:
--- NOTE | 2020-11-06 07:55 | HPC ---
[facility] [place] [address] [place] [address] PAIN MANAGEMENT CONSULTATION Name: CANDIDA VICKERS Room #: REG CHRISTINA Hein.#: [id number] Admission: 11/05/20 Attend Phys: Morgan Rodriguez DO Discharge: Date of : 49 Report #: [id number] THIS REPORT FOR: cc: Ambrose Viera MD, Richard C. MD Johnson, James E. DO ~ cc: Ambrose Viera MD DATE OF SERVICE: 11/05/2020 DATE OF SERVICE: 11/05/2020. REFERRING PHYSICIAN: Dr. Ambrose Viera CHIEF COMPLAINT: Bilateral SI joint pain. HISTORY OF PRESENT ILLNESS: As you know, the patient is a very pleasant 75-year-old male returning in followup visit with recurrence of his bilateral SI joint pain. He is now placing pain score 6/10. He reports with previous bilateral SI joint injection with improvement in symptoms of greater than 60%, lasting for months. He returns today in followup visit, denying specific injury or trauma that has led to recurrence of symptoms. The patient has requested bilateral SI joint injections provided today in hopes of improving his reported 6/10 pain. ALLERGIES: No known drug allergies. CURRENT MEDICATIONS: Omeprazole, multivitamin, alprazolam, oxycodone/acetaminophen 7.5/325 one tab every 8 hours p.r.n. pain, atorvastatin, duloxetine, tamsulosin, meloxicam, tizanidine, trazodone, olanzapine. SOCIAL HISTORY: The patient continues to smoke despite discussions to decrease his activity. He reports he is still smoking 1-2 cigarettes per day. He denies IV or illicit drug use. Denies chronic alcohol use. He is unaccompanied today. IMAGING: No new imaging available. PQRS: The patient has known arthritic changes of lumbar spine, bilateral SI joints and hips. No rheumatoid arthritis. Placing current pain score 6/10. He is not a fall risk, does not have fall in last 3 months. He is not on blood thinners nor is he reportedly treated for hypertension. He is on chronic opioids as a moderate to severe opioid addiction potential based on our assessment tool. Pain impact remains high. Approximately 40/70, moderate interference of daily activities secondary to pain. PHYSICAL EXAMINATION: VITAL SIGNS: Blood pressure 132/82, pulse 82, respiratory rate 16, unlabored. [address] [address] PAIN MANAGEMENT CONSULTATION Name: CANDIDA VICKERS Room #: REG [facility]..#: [id number] Admission: 11/05/20 Attend Phys: Morgan Rodriguez DO Discharge: Date of : 49 Report #: [id number] The patient is 98% on room air, height 6 feet tall, weight 216.6 pounds, BMI calculated 29.4. GENERAL: Well-developed, well-nourished, well-hydrated 75-year-old male, appears stated age, smells strongly of tobacco smoke, placing current pain score at 6/10. HEENT: Normocephalic, atraumatic. Pupils are round and responsive. He is wearing a mask in compliance with COVID-19 regulations per our hospital request. EXTREMITIES: Show no clubbing, no cyanosis and no edema. MUSCULOSKELETAL: Seated straight leg raising negative. Supine straight leg raising negative. Fabere's test is negative. Thigh thrust maneuver 3+ bilaterally. Néstor test positive bilaterally for SI joint dysfunction. Darnell sign, positive for SI joint dysfunction. ASSESSMENT: 1. Bilateral sacroiliac joint pain. 2. Bilateral sacroiliac joint dysfunction. 3. Chronic axial back pain due to facet arthropathy. 4. Chronic intractable pain. PLAN: 1. The patient returns today in followup visit requesting bilateral SI joint injections under fluoroscopic guidance. He notes good benefit with these injections. Most recent giving 60% improvement in overall pain until just recently where he has had a slow and progressive return of symptoms. He denies specific injury or trauma that may have led to symptom reoccurrence. He has been advised of the risks and the benefits of bilateral SI joint injections. He states he understood and wished to proceed. 2. No medication changes made at today's examination, he will continue current medical therapy as prior prescribed. 3. We will see the patient back in followup visit for bilateral SI joint injections under fluoroscopic guidance. PROCEDURE NOTE: DESCRIPTION OF PROCEDURE: Bilateral sacroiliac joint injections under fluoroscopic guidance. After obtaining written consent, the patient was taken back to fluoroscopy suite, placed in prone position with pillow under pelvis to decrease the lumbar lordosis. Skin overlying the gluteal sacral area directly over the SI joints were prepped and draped in aseptic fashion. A medial to lateral oblique projection allowed separation of the anterior and posterior branches of the joint space to be visualized. Skin and subcutaneous tissue overlying target site injection anesthetized with 3 mL 1% lidocaine at each site. A 22-gauge 3-1/2 inch spinal needle with bent tip was directed to [address] [address] PAIN MANAGEMENT CONSULTATION Name: CANDIDA VICKERS Room #[facility] [id number] Admission: 11/05/20 Attend Phys: Morgan Rodriguez DO Discharge: Date of : 49 Report #: [id number] the inferior aspect of the right sacroiliac joint using a posterior approach. A "giving away" at the needle hub was noted once the dorsal sacroiliac and interosseous ligaments were engaged. After negative aspiration for heme, a total of 0.25 mL of Omnipaque injected outlining the inferior recess of the joint. Pain provocation consistent with intense of buttock pain were negative. After negative aspiration for heme, 3 mL of solution containing 1 mL 40 mg per mL, 40 mg total triamcinolone along with 2 mL of bupivacaine 0.5% was injected slowly. Needle retracted custodial flushed with 1 mL of 1% lidocaine and then removed. Our attention was then directed to the left side. The skin and subcutaneous tissue overlying target site injection was anesthetized with 3 mL 1% lidocaine. A 22-gauge 3-1/2 inch spinal needle with bent tip was directed to the inferior aspect of the left sacroiliac joint using a posterior approach. A "giving away" at the needle hub was noted once the dorsal sacroiliac and interosseous ligaments were engaged. After negative aspiration for heme, a total of 0.5 mL of Omnipaque injected outlining the inferior recess of the joint. Provocation responses consistent of intense buttock pain were negative. After negative aspiration for heme, 3 mL solution containing 1 mL 40 mg per mL, 40 mg total triamcinolone along with 2 mL of bupivacaine 0.5% was injected slowly. Needle retracted custodial flushed with 1 mL of 1% lidocaine, then removed. Sterile bandage placed over injection site. No new motor deficits present in the lower extremity following procedure. The patient tolerated the procedure well, carefully escorted to recovery room in stable condition. No apparent complications. After meeting discharge criteria, the patient discharged home. <ELECTRONICALLY SIGNED> By: Morgan Rodriguez DO 11/06/20 [id number] Morgan Rodriguez DO /nt
== END | disposition home or self-care (01) ==
LOC: PAIN 06-11 11:09
PROVIDERS: ATTEND Anesthesiology Pain Medicine
DX: M53.3 Sacrococcygeal disorders, not elsewhere classified (principal); G89.29 Other chronic pain; M54.9 Dorsalgia, unspecified; M47.897 Other spondylosis, lumbosacral region; F17.210 Nicotine dependence, cigarettes, uncomplicated; Z98.890 Other specified postprocedural states; Z79.899 Other long term (current) drug therapy